=== PATIENT | male | born 1970 | race Two or more races ===

== ENCOUNTER 2017-02-01 08:26 | Outpatient (CLI) | payer MEDICARE, MEDICAID ==
[~2017-02-01] VITALS: Ht 175.3 cm; Wt 94.1 kg
[2017-02-01] MEDS ORDERED: OXYCONTIN10 MG PO (08:48)
[2017-02-01] MEDS ORDERED: ZOFRAN4 MG PO (08:48)
[2017-02-01] MEDS ORDERED: INDERAL10 MG PO (08:49)
[2017-02-01] MEDS ORDERED: PROTONIX40 MG PO (08:49)
[2017-02-01] MEDS ORDERED: NEURONTIN 300300 MG PO (08:50)
[2017-02-01 08:52] VITALS: BP 118/71; Ht 175.3 cm; Wt 94.1 kg
[2017-02-01 10:47] LABS: BASOPHILS 0.3 % (0-2); EOSINOPHILS 2.5 % (0-7); HEMATOCRIT 30.6 % (42.0-54.0); HEMOGLOBIN 9.6 g/dL (13.5-17.5); MCH 30.1 pg (26.0-34.0); MCHC 31.4 g/dL (31.0-37.0); MCV 95.9 fL (80.0-100.0); MEAN PLATELET VOLUME 10.3 fL (7.4-10.4); MONOCYTES 9.8 % (2-11); NEUTROPHILS 58.4 % (40-80); PLATELET COUNT 69 10x3/uL (130-400); RBC 3.19 10x6/uL (4.20-6.10); RDW 14.9 % (11.5-14.5); WBC 3.7 10x3/uL (4.8-10.8)
[2017-02-01 10:48] LABS: PLATELET ESTIMATE DECREASED
[2017-02-01 10:51] LABS: INR 1.23 (0.85-1.17); PROTIME 15.4 SECONDS (11.6-15.0)
[2017-02-01 10:54] LABS: CALC OSMOLALITY 277 mosm/kg (275-300); CALCIUM 8.5 mg/dL (8.5-10.1); CARBON DIOXIDE 25.9 mmol/L (21.0-32.0); CHLORIDE - SERUM 107 mmol/L (98-107); CREATININE - SERUM 0.7 mg/dL (0.6-1.3); GLUCOSE 93 mg/dL (74-106); POTASSIUM - SERUM 5.8 mmol/L (3.5-5.1); SODIUM 141 mmol/L (136-145); UREA NITROGEN 4 mg/dL (7-18); eGFR NON AFRICAN AMERICAN > 90 mL/min (90-120)
--- NOTE | 2017-02-01 12:38 | NUR ---
[id number] YELLOW FLUID REMOVED FROM ABDOMEN
--- NOTE | 2017-02-01 14:35 | NUR ---
DISCHARGE INSTRUCTIONS REVIEWED, VERBALIZED UNDERSTANDING. DC'D VIA WC WITH FAMILY
== END 2017-02-01 14:35 | disposition home or self-care (01) ==
LOC: D.OPS 08:26 → D.CT 11:00 → D.OPS 14:35
PROVIDERS: General Practice
DX: R18.8 Other ascites (principal); K74.60 Unspecified cirrhosis of liver; F17.200 Nicotine dependence, unspecified, uncomplicated; K21.9 Gastro-esophageal reflux disease without esophagitis; Z01.812 Encounter for preprocedural laboratory examination

== ENCOUNTER 2017-06-06 12:04 | Emergency (ER) | payer MEDICARE, MEDICAID ==
[2017-02-01 08:52] VITALS: BMI 30.6
[~2017-06-06 12:04] MED LIST: INDERAL10 MG PO; NEURONTIN 300300 MG PO; OXYCONTIN10 MG PO; PROTONIX40 MG PO; ZOFRAN4 MG PO
[2017-06-06 12:52] LABS: BASOPHILS 0.3 % (0-2); EOSINOPHILS 2.8 % (0-7); HEMATOCRIT 37.3 % (42.0-54.0); HEMOGLOBIN 12.1 g/dL (13.5-17.5); IMMATURE GRANULOCYTES 0.3 % (0-5); LYMPHOCYTES 44.7 % (15-50); MCH 27.9 pg (26.0-34.0); MCHC 32.4 g/dL (31.0-37.0); MCV 86.1 fL (80.0-100.0); MEAN PLATELET VOLUME 9.6 fL (7.4-10.4); MONOCYTES 12.5 % (2-11); NEUTROPHILS 39.4 % (40-80); PLATELET COUNT 72 10x3/uL (130-400); RBC 4.33 10x6/uL (4.20-6.10); RDW 23.9 % (11.5-14.5); WBC 3.6 10x3/uL (4.8-10.8)
[2017-06-06 13:09] LABS: ALBUMIN 3.2 g/dL (3.4-5.0); ALKALINE PHOSPHATASE 131 U/L (46-116); ALT (SGPT) 34 U/L (10-68); AMYLASE - SERUM 111 U/L (25-115); BILIRUBIN - INDIRECT 0.77 mg/dL (0.00-1.00); BILIRUBIN - TOTAL 1.07 mg/dL (0.2-1.3); CALC OSMOLALITY 275 mosm/kg (275-300); CALCIUM 9.2 mg/dL (8.5-10.1); CARBON DIOXIDE 27.9 mmol/L (21.0-32.0); CHLORIDE - SERUM 104 mmol/L (98-107); CREATININE - SERUM 0.9 mg/dL (0.6-1.3); GLUCOSE 95 mg/dL (74-106); LIPASE 204 U/L (73-393); POTASSIUM - SERUM 4.2 mmol/L (3.5-5.1); PROTEIN - SERUM 7.8 g/dL (6.4-8.2); SODIUM 139 mmol/L (136-145); UREA NITROGEN 8 mg/dL (7-18); eGFR NON AFRICAN AMERICAN > 90 mL/min (90-120)
[2017-06-06 13:10] LABS: APPEARANCE CLEAR (CLEAR); BILIRUBIN NEGATIVE (NEGATIVE); COLOR YELLOW (YELLOW); GLUCOSE NEGATIVE (NEGATIVE); KETONE NEGATIVE (NEGATIVE); NITRITE NEGATIVE (NEGATIVE); PROTEIN NEGATIVE (NEGATIVE); SPECIFIC GRAVITY 1.015 (1.005-1.020); UROBILINOGEN NORMAL (NORMAL)
[2017-06-06 13:16] LABS: PLATELET ESTIMATE DECREASED
== END 2017-06-06 16:18 | disposition left against medical advice (07) ==
LOC: D.ER 12:04
PROVIDERS: Family Medicine
DX: R10.9 Unspecified abdominal pain (principal); K74.60 Unspecified cirrhosis of liver; K21.9 Gastro-esophageal reflux disease without esophagitis